=== PATIENT | male | born 1960 | race African-American/Black ===

== ENCOUNTER 2017-02-02 09:25 | Emergency (ER) | payer OTHER ==
[~2017-02-02] VITALS: Ht 172.7 cm; Wt 62.0 kg
[~2017-02-02 09:25] MED LIST: FOLI-43 PO; MULT-1146 PO; OMEP20TA80 PO; PROP20TA7 PO; THIA100T13 PO
[2017-02-02 10:44] LABS: BASOPHILS % 0.6 % (0.0-2.0); DIFFERENTIAL COMMENT 0; HEMATOCRIT. 38.4 % (42.0-52.0); HEMOGLOBIN. 12.5 g/dL (14.0-18.0); LYMPHOCYTES % 11.9 % (20.0-50.0); MEAN CORPUSCULAR HEMOGLOBIN 25.9 pg (28.0-32.0); MEAN CORPUSCULAR HGB CONC 32.6 g/dL (31.0-37.0); MEAN CORPUSCULAR VOLUME 79.2 fL (80.0-94.0); MEAN PLATELET VOLUME 8.5 fl (7.4-10.4); MONOCYTES % 12.7 % (2.0-8.0); NEUTROPHILS % 73.8 % (40.0-76.0); PLATELET 156 x1000/uL (130-400); RED BLOOD CELL COUNT 4.84 mill/uL (4.7-6.1); RED CELL DISTRIBUTION WIDTH 19.4 % (11.6-14.6); WHITE BLOOD COUNT 5.1 x1000/uL (4.5-11.0)
[2017-02-02 10:45] LABS: INR 1.4; PROTHROMBIN TIME 14.7 sec
[2017-02-02 10:47] LABS: ALANINE AMINOTRANSFERASE 31 IU/L (13-61); ALBUMIN 2.9 g/dL (3.4-5.0); ANION GAP 12; CALCIUM 8.5 mg/dL (8.5-10.1); CARBON DIOXIDE 26 mEq/L (21-32); CHLORIDE 104 mEq/L (98-107); INDEX HEMOLYSI 1 (1-3); INDEX ICTERIC 2 (1-4); INDEX LIPEMIC 1 (1-3); UREA NITROGEN BLOOD 11 mg/dL (7-21); eGFR > 60 mL/min (>60)
[2017-02-02 12:59] VITALS: BP 121/87
[2017-02-02] MEDS ORDERED: LIDOCAINE HCL 1% 20ML VIAL (Pyxis) INJ ONE (13:47)
[2017-02-02] MEDS ORDERED: SODIUM BICARBONATE 4% (2.4MEQ) 5ML VIAL IV ONE (13:47)
[2017-02-02] MEDS ORDERED: POTASSIUM CHLORIDE 20MEQ TABLET SR PO ONE (14:00)
== END 2017-02-02 14:20 | disposition home or self-care (01) ==
LOC: ER 10:48
DX: K76.9 Liver disease, unspecified (principal); R18.8 Other ascites; E87.6 Hypokalemia; R03.0 Elevated blood-pressure reading, without diagnosis of hypertension; K42.9 Umbilical hernia without obstruction or gangrene
CPT/HCPCS: 36415; 49083; 80053; 85025; 85610; 99285; J3490; Z7610

== ENCOUNTER 2017-08-21 12:18 | Inpatient (IN) | payer OTHER ==
[~2017-08-21] VITALS: Ht 172.7 cm; Wt 59.9 kg
[~2017-08-21 12:18] MED LIST changes: +OMEP20TA2 PO; -OMEP20TA80 PO
[2017-08-21] MEDS ORDERED: LIDOCAINE HCL 1% 20ML VIAL (Pyxis) INJ MC ONE (13:00)
[2017-08-21] MEDS ORDERED: TETANUS, DIPHTHERIA, PERTUSSIS VAC/PF 0.5ML (>7YR OLD) IM ONE (13:00)
[2017-08-21 13:05] LABS: BASOPHILS % 0.8 % (0.0-2.0); EOSINOPHILS % 2.2 % (0.0-5.0); HEMATOCRIT. 36.5 % (42.0-52.0); LYMPHOCYTES % 21.7 % (20.0-50.0); MEAN CORPUSCULAR HEMOGLOBIN 25.5 pg (28.0-32.0); MEAN CORPUSCULAR VOLUME 77.6 fL (80.0-94.0); MEAN PLATELET VOLUME 7.7 fl (7.4-10.4); MONOCYTES % 10.6 % (2.0-8.0); NEUTROPHILS % 64.7 % (40.0-76.0); PLATELET 160 x1000/uL (130-400); RED BLOOD CELL COUNT 4.71 mill/uL (4.7-6.1); RED CELL DISTRIBUTION WIDTH 19.6 % (11.6-14.6)
[2017-08-21 13:13] LABS: INR 1.3; PROTHROMBIN TIME 13.3 sec (9.4-11.6)
[2017-08-21 13:18] LABS: AMMONIA 43 uMol/L (<32)
[2017-08-21 13:21] LABS: CARBON DIOXIDE 24 mEq/L (21-32); CHLORIDE 109 mEq/L (98-107); TROPONIN I < 0.02 ng/mL (0.00-0.04)
[2017-08-21] MEDS ORDERED: SODIUM CHLORIDE 0.9% 1,000 ML IV SCH (15:55)
[2017-08-21] MEDS ORDERED: ONDANSETRON HCL 4MG/2ML VIAL IV PRN (16:00)
[2017-08-21] MEDS ORDERED: ACETAMINOPHEN 325MG TABLET PO PRN (16:00)
[2017-08-21] MEDS ORDERED: POTASSIUM CHLORIDE 20MEQ TABLET SR PO NR (16:00)
[2017-08-21] MEDS ORDERED: CLONIDINE 0.1MG TABLET PO PRN (16:00)
[2017-08-21 20:48] VITALS: BP 124/80
[2017-08-21] MEDS ORDERED: ENOXAPARIN 40MG/0.4ML SYR SUBCUT SCH (21:00)
[2017-08-21 21:45] VITALS: BP 124/80
[2017-08-21] MEDS ORDERED: FURO-152 PO (22:07)
[2017-08-22] VITALS: BP 105/75
[2017-08-22 04:00] VITALS: BP 112/79
[2017-08-22] MEDS ORDERED: POTASSIUM CHLORIDE 20MEQ TABLET SR PO SCH (06:00)
[2017-08-22 08:27] VITALS: BP_SYST 110; BP_SYST 133; BP_SYST 143; BP_DIAS 70; BP_DIAS 85; BP_DIAS 89
[2017-08-22] MEDS ORDERED: POTASSIUM CHLORIDE 20MEQ TABLET SR PO NR (09:00)
[2017-08-22 12:00] VITALS: BP_SYST 114; BP_SYST 115; BP_SYST 125; BP_DIAS 63; BP_DIAS 72; BP_DIAS 79
[2017-08-22] MEDS ORDERED: PROPRANOLOL HCL 20MG TABLET PO SCH (13:30)
[2017-08-22 15:42] LABS: BASOPHILS % 0.6 % (0.0-2.0); EOSINOPHILS % 1.7 % (0.0-5.0); HEMOGLOBIN. 11.7 g/dL (14.0-18.0); LYMPHOCYTES % 15.2 % (20.0-50.0); MEAN CORPUSCULAR HEMOGLOBIN 25.2 pg (28.0-32.0); MEAN CORPUSCULAR VOLUME 77.6 fL (80.0-94.0); MEAN PLATELET VOLUME 7.9 fl (7.4-10.4); MONOCYTES % 13.6 % (2.0-8.0); NEUTROPHILS % 68.9 % (40.0-76.0); PLATELET 134 x1000/uL (130-400); RED BLOOD CELL COUNT 4.63 mill/uL (4.7-6.1); RED CELL DISTRIBUTION WIDTH 19.2 % (11.6-14.6)
[2017-08-22 15:47] LABS: CHLORIDE 109 mEq/L (98-107)
[2017-08-22 15:53] LABS: CARBON DIOXIDE 25 mEq/L (21-32)
[2017-08-23] MEDS ORDERED: FOLIC ACID 1MG TABLET PO SCH (09:00)
[2017-08-23] MEDS ORDERED: FUROSEMIDE 20MG TABLET PO SCH (09:00)
== END 2017-08-22 16:00 | disposition home or self-care (01) | DRG 74 ==
LOC: ER 12:18 → 5WST 14:09 → ENRESERV 19:54
PROVIDERS: ADMIT Internal Medicine Geriatric Medicine; ATTEND Internal Medicine Geriatric Medicine
PROC: 0HQ1XZZ Repair Face Skin, External Approach (ICD-10-PCS; principal; 2017-08-21)
DX: G90.8 Other disorders of autonomic nervous system (principal); K70.31 Alcoholic cirrhosis of liver with ascites; E44.1 Mild protein-calorie malnutrition; I10 Essential (primary) hypertension; D63.8 Anemia in other chronic diseases classified elsewhere; S01.81XA Laceration without foreign body of other part of head, initial encounter; W19.XXXA Unspecified fall, initial encounter; F10.20 Alcohol dependence, uncomplicated; K42.9 Umbilical hernia without obstruction or gangrene; E87.6 Hypokalemia; Z96.649 Presence of unspecified artificial hip joint; Z79.899 Other long term (current) drug therapy; Z68.20 Body mass index [BMI] 20.0-20.9, adult; Y93.89 Activity, other specified; Y92.89 Other specified places as the place of occurrence of the external cause; Y99.8 Other external cause status
CPT/HCPCS: 12011; 36415; 70450; 70486; 71010; 80048; 80053; 80076; 82140; 82270; 82962; 83735; 83880; 84484; 85025; 85610; 90471; 90715; 93005; 93970; 99285; J1650; J3490